=== PATIENT | female | born 1975 | race Caucasian/White ===

== ENCOUNTER 2019-04-14 17:29 | Emergency (ER) | payer OTHER, SELFPAY ==
[2019-04-14 17:47] VITALS: BP 142/81; PULSE 74; RESP 18; TEMP 37; O2SAT 100
--- NOTE | 2019-04-14 17:49 | ED.URI ---
HPI - URI/Sore Throat General Chief Complaint: Upper Respiratory Infection Stated Complaint: sore throat Time Seen by Provider: 04/14/19 17:50 Source: patient and RN notes reviewed Mode of arrival: ambulatory Limitations: no limitations History of Present Illness HPI Narrative: 44-year-old female presents with concern for sore throat, low-grade fever for 2 days. She reports nasal congestion, rhinorrhea, postnasal drainage. Denies cough. MD elicited complaint: sore throat Related Data Home Medications Medication Instructions Recorded Confirmed celecoxib mg 04/14/19 Allergies Allergy/AdvReac Type Severity Reaction Status Date / Time bacitracin Allergy Unknown Unknown Verified 11/27/17 17:26 hydroxyzine Allergy Unknown Heart Unverified 05/06/17 02:25 Palpitations neomycin Allergy Unknown Unknown Verified 11/27/17 17:26 polymyxin B Allergy Unknown Unknown Verified 11/27/17 17:26 Review of Systems Review of Systems: Narrative: CONSTITUTIONAL: Denies malaise, chills, sweats. Reports low-grade fever. EYES: Denies visual changes, redness, or discharge. ENT: Reports rhinorrhea, congestion, sore throat, ear fullness. Denies sinus pain, otalgia. CARDIOVASCULAR: Denies chest pain, palpitations, or edema. RESPIRATORY: Denies cough or dyspnea. GASTROINTESTINAL: Denies abdominal pain, nausea, vomiting, diarrhea SKIN: Denies rash or itching. MUSCULOSKELETAL: Denies myalgia. NEUROLOGIC: Denies headache. All systems reviewed & are unremarkable except as noted in HPI and below PMFSH Family History Family History (Updated 11/13/13 @ 07:13 by DOCTOR UNKNOWN) Father Hypertension Social History Social History Second hand tobacco smoke exposure: Yes Smoking end date: 03/19/11 Alcohol intake: current Comments At time of signature, agree with nursing past medical, surgical, social and family history. There is no relevant family history pertinent to the presenting complaint Exam Narrative: Exam Narrative: GENERAL: Well-appearing, well-nourished, and in no acute distress. HEAD: Normocephalic, atraumatic. EYES: PERRLA, conjunctivae clear, and EOMI. ENT: Nares clear, turbinates edematous and erythematous, clear discharge. Mucous membranes moist. TM pearly martel with dull light reflex bilaterally; no tragal tenderness. Oropharynx erythematous without lesions. Tonsils not enlarged and without exudate, no drooling, no hoarseness, no trismus. NECK: Supple. No lymphadenopathy CHEST: Clear to auscultation, breath sounds equal. No wheezing, rhonchi, rales, or stridor. No respiratory distress, speaks in full sentences. HEART: Regular rate and rhythm. No murmur heard. Normal peripheral pulses. SKIN: Warm, dry, no rash. NEURO: Alert and oriented x3. PSYCH: Normal mood and affect Course Course Emergency Course: Patient is aware of diagnosis, understands and agrees to treatment plan. Anticipatory guidance given. Patient agrees to follow-up as directed and is aware of reasons to seek care at the emergency department. Portions of this record may have been created with voice recognition software Vital Signs Vital signs: Vital Signs Temperature 98.6 F 04/14/19 17:47 Pulse Rate 74 04/14/19 17:47 Respiratory Rate 18 04/14/19 17:47 Blood Pressure 142/81 H 04/14/19 17:47 Pulse Oximetry 100 04/14/19 17:47 Temperature 98.6 F 04/14/19 17:47 Pulse Rate 74 04/14/19 17:47 Respiratory Rate 18 04/14/19 17:47 Blood Pressure 142/81 H 04/14/19 17:47 Pulse Oximetry 100 04/14/19 17:47 Reviewed. Patient has been instructed to follow up with her primary care provider within the next week regarding her elevated blood pressure today. MDM - URI/Sore Throat MDM Narrative Medical decision making narrative: Differential diagnosis considered: Strep pharyngitis, allergic rhinitis, upper respiratory tract infection, sinusitis, rhinosinusitis, nasopharyngitis. viral pharyngitis, otitis media, otitis externa, pneumonia,
== END 2019-04-14 18:10 | disposition home or self-care (01) ==
PROVIDERS: Emergency Provider Nurse Practitioner
DX: I34.1 Nonrheumatic mitral (valve) prolapse (principal)
CPT/HCPCS: 87081; 87880; 99213; G0463